=== PATIENT | female | born 1995 | race Two or more races ===

== ENCOUNTER 2024-01-31 00:35 | Emergency (ER) | payer OTHER ==
[~2024-01-31] VITALS: Ht 170.2 cm; Wt 59.0 kg
[2024-01-31] MEDS ORDERED: METOCLOPRAMIDE HCL 5 MG/ML VIAL IM STA (03:45)
[2024-01-31] MEDS ORDERED: RINGERS SOLUTION,LACTATED 500 ML IV STA (03:46)
[2024-01-31] MEDS ORDERED: FAMOtidine 10 MG/ML (4ML VIAL) IV PUSH STA (03:47)
[2024-01-31] MEDS ORDERED: ONDANSETRON HCL 2 MG/ML VIAL IV STA (03:47)
[2024-01-31] MEDS ORDERED: HYOSCYAMINE SULFATE 0.125 MG TAB.SUBL SL STA (03:48)
[2024-01-31 04:34] LABS: HEMATOCRIT 37.7 % (36.0-45.00); HEMOGLOBIN 12.7 g/dL (12.0-15.00); MEAN CORPUSCULAR HGB CONC 33.7 g/dl (32.0-36.0); PLATELET COUNT 260 K/uL (150-450); RED BLOOD COUNT 3.97 M/uL (4.00-6.00)
[2024-01-31 04:45] LABS: CALCIUM 9.7 mg/dL (8.5-10.1); CREATININE SERUM 0.67 mg/dL (0.55-1.02); GFR 106.39; POTASSIUM 4.06 mEq/L (3.5-5.1)
== END 2024-01-31 06:21 | disposition home or self-care (01) ==
LOC: ER 00:35
DX: K29.70 Gastritis, unspecified, without bleeding (principal); Z91.013 Allergy to seafood; Z91.018 Allergy to other foods; K21.9 Gastro-esophageal reflux disease without esophagitis